=== PATIENT | male | born 1955 | race African-American/Black ===

== ENCOUNTER 2020-10-03 05:16 | Inpatient (IN) | payer MEDICARE, MEDICAID ==
[~2020-10-03] VITALS: Ht 185.4 cm; Wt 69.9 kg
[2020-10-03] MEDS ORDERED: SODIUM CHLORIDE 0.9% 1000ML BAG (SEPSIS BOLUS) IV ONE (06:30)
[2020-10-03] MEDS ORDERED: VANCOMYCIN 1 G PREMIX 200 ML IV ONE (06:30)
[2020-10-03] MEDS ORDERED: ACETAMINOPHEN 650MG SUPP PR ONE (06:30)
[2020-10-03] MEDS ORDERED: PIPERACILLIN/TAZ 3.375G PREMIX 50 ML IV ONE (06:30)
[2020-10-03 07:09] LABS: HEMATOCRIT. 31.2 % (42.0-52.0); HEMOGLOBIN. 10.4 g/dL (14.0-18.0); MEAN CORPUSCULAR HEMOGLOBIN 30.1 pg (28.0-32.0); MEAN CORPUSCULAR VOLUME 90.7 fL (80.0-94.0); MEAN PLATELET VOLUME 8.1 fl (7.4-10.4); PLATELET 211 x1000/uL (130-400); RED BLOOD CELL COUNT 3.44 mill/uL (4.7-6.1); RED CELL DISTRIBUTION WIDTH 16.2 % (11.6-14.6)
[2020-10-03 07:10] LABS: INR 1.2; PROTHROMBIN TIME 12.4 sec (9.6-11.0)
[2020-10-03 07:21] LABS: CHLORIDE 106 mEq/L (98-107)
[2020-10-03 08:05] LABS: PLATELET ESTIMATE NORMAL
[2020-10-03] MEDS ORDERED: ONDANSETRON HCL 4MG/2ML INJ IV PRN (13:00)
[2020-10-03] MEDS ORDERED: MAGNESIUM/ALUMINUM HYDROXIDE/SIMETHICONE 30ML UDC PO PRN (13:00)
[2020-10-03] MEDS ORDERED: LORAZEPAM 2MG/ML CPJ IV PRN (13:00)
[2020-10-03] MEDS ORDERED: GUAIFENESIN 200MG/10ML SUGAR FREE UDC PO PRN (13:00)
[2020-10-03] MEDS ORDERED: PIPERACILLIN/TAZ 3.375G PREMIX 50 ML IV SCH (13:00)
[2020-10-03] MEDS ORDERED: ACETAMINOPHEN 325MG TABLET PO PRN (13:00)
[2020-10-03] MEDS: DEXT 5%/0.45% NACL 1000ML 1,000 ML IV SCH (13:00)
[2020-10-03] MEDS: ENOXAPARIN 40MG/0.4ML SYR SUBCUT SCH (14:00)
[2020-10-03] MEDS: PIPERACILLIN/TAZOBACTAM 2.25 G in DEXTROSE 5% WATER 50 ML IV SCH ×2 (14:00→21:02)
[2020-10-04] MEDS: PIPERACILLIN/TAZOBACTAM 2.25 G in DEXTROSE 5% WATER 50 ML IV SCH ×3 (02:31→14:00)
[2020-10-04] MEDS: DEXT 5%/0.45% NACL 1000ML 1,000 ML IV SCH ×2 (02:31→17:17)
[2020-10-04 04:37] LABS: HEMATOCRIT. 27.9 % (42.0-52.0); HEMOGLOBIN. 9.6 g/dL (14.0-18.0); MEAN CORPUSCULAR HEMOGLOBIN 30.4 pg (28.0-32.0); MEAN CORPUSCULAR VOLUME 88.8 fL (80.0-94.0); RED BLOOD CELL COUNT 3.15 mill/uL (4.7-6.1); RED CELL DISTRIBUTION WIDTH 16.4 % (11.6-14.6)
[2020-10-04 04:44] LABS: CHLORIDE 109 mEq/L (98-107)
[2020-10-04 08:33] LABS: PLATELET ESTIMATE NORMAL
[2020-10-04 08:35] LABS: MEAN PLATELET VOLUME 8.2 fl (7.4-10.4); PLATELET 151 x1000/uL (130-400)
[2020-10-04] MEDS: ENOXAPARIN 40MG/0.4ML SYR SUBCUT SCH (17:15)
[2020-10-04 21:55] VITALS: BP 132/86
[2020-10-04 22:00] VITALS: BP 132/86
[2020-10-05] VITALS (12 sets, daily range): BP systolic 110–152; BP diastolic 62–86
[2020-10-05] MEDS: PIPERACILLIN/TAZOBACTAM 2.25 G in DEXTROSE 5% WATER 50 ML IV SCH ×3 (00:26→11:51)
[2020-10-05] MEDS: DEXT 5%/0.45% NACL 1000ML 1,000 ML IV SCH ×2 (04:44→18:33)
[2020-10-05] MEDS: ENOXAPARIN 40MG/0.4ML SYR SUBCUT SCH (10:15)
[2020-10-05] MEDS: CEFTRIAXONE 2 G in DEXTROSE 5% WATER 50 ML IV SCH (18:16)
[2020-10-06] VITALS (12 sets, daily range): BP systolic 110–141; BP diastolic 60–86
[2020-10-06 06:30] LABS: BASOPHILS % 0.4 % (0.0-2.0); HEMOGLOBIN. 9.2 g/dL (14.0-18.0); LYMPHOCYTES % 9.1 % (20.0-50.0); MEAN CORPUSCULAR HEMOGLOBIN 30.1 pg (28.0-32.0); MEAN CORPUSCULAR VOLUME 88.5 fL (80.0-94.0); MEAN PLATELET VOLUME 8.4 fl (7.4-10.4); MONOCYTES % 6.7 % (2.0-8.0); NEUTROPHILS % 82.8 % (40.0-76.0); PLATELET 183 x1000/uL (130-400); RED BLOOD CELL COUNT 3.05 mill/uL (4.7-6.1); RED CELL DISTRIBUTION WIDTH 16.7 % (11.6-14.6)
[2020-10-06 06:34] LABS: CHLORIDE 108 mEq/L (98-107)
[2020-10-06] MEDS: DEXT 5%/0.45% NACL 1000ML 1,000 ML IV SCH (07:40)
[2020-10-06] MEDS: ENOXAPARIN 40MG/0.4ML SYR SUBCUT SCH (08:53)
[2020-10-06] MEDS: CEFTRIAXONE 2 G in DEXTROSE 5% WATER 50 ML IV SCH (16:09)
[2020-10-06 16:51] LABS: CREATINE KINASE 187 IU/L (39-308)
[2020-10-06 17:26] LABS: CLARITY URINE CLEAR (CLEAR); COLOR URINE ORANGE (YELLOW); KETONES URINE NEGATIVE (NEGATIVE); LEUKOCYTE ESTERASE URINE 3+ (NEGATIVE); NITRITE URINE NEGATIVE (NEGATIVE); OCCULT BLOOD URINE 3+ (NEGATIVE); PROTEIN URINE 1+ (NEGATIVE); SPECIFIC GRAVITY URINE 1.008 (1.005-1.030); UROBILINOGEN URINE 0.2 E.U./dL (0.2-1.0)
[2020-10-06] MEDS: SODIUM CHLORIDE 0.45% 1,000 ML IV SCH (20:04)
[2020-10-07] VITALS (13 sets, daily range): BP systolic 107–140; BP diastolic 58–83
[2020-10-07] MEDS: SODIUM CHLORIDE 0.45% 1,000 ML IV SCH ×2 (09:17→22:09)
[2020-10-07] MEDS: ENOXAPARIN 40MG/0.4ML SYR SUBCUT SCH (09:18)
[2020-10-07] MEDS: CEFTRIAXONE 2 G in DEXTROSE 5% WATER 50 ML IV SCH (16:13)
[2020-10-07 16:47] LABS: HEMATOCRIT. 24.2 % (42.0-52.0); HEMOGLOBIN. 8.4 g/dL (14.0-18.0); MEAN CORPUSCULAR HEMOGLOBIN 30.8 pg (28.0-32.0); MEAN CORPUSCULAR VOLUME 88.4 fL (80.0-94.0); MEAN PLATELET VOLUME 7.9 fl (7.4-10.4); PLATELET 165 x1000/uL (130-400); RED BLOOD CELL COUNT 2.73 mill/uL (4.7-6.1); RED CELL DISTRIBUTION WIDTH 16.1 % (11.6-14.6)
[2020-10-07 17:21] LABS: CHLORIDE 112 mEq/L (98-107)
[2020-10-07 19:32] LABS: PLATELET ESTIMATE NORMAL
[2020-10-08] VITALS (8 sets, daily range): BP systolic 114–156; BP diastolic 67–81
[2020-10-08 07:31] LABS: BASOPHILS % 1.1 % (0.0-2.0); EOSINOPHILS % 4.6 % (0.0-5.0); HEMATOCRIT. 23.3 % (42.0-52.0); HEMOGLOBIN. 7.8 g/dL (14.0-18.0); LYMPHOCYTES % 21.1 % (20.0-50.0); MEAN CORPUSCULAR VOLUME 89.7 fL (80.0-94.0); MEAN PLATELET VOLUME 8.3 fl (7.4-10.4); MONOCYTES % 14.3 % (2.0-8.0); NEUTROPHILS % 58.9 % (40.0-76.0); PLATELET 193 x1000/uL (130-400); RED CELL DISTRIBUTION WIDTH 16.6 % (11.6-14.6)
[2020-10-08 07:39] LABS: CHLORIDE 110 mEq/L (98-107)
[2020-10-08] MEDS: ENOXAPARIN 40MG/0.4ML SYR SUBCUT SCH (09:42)
[2020-10-08] MEDS ORDERED: POTASSIUM CHLORIDE 20MEQ/PACKET PO NR (12:00)
[2020-10-08] MEDS: SODIUM CHLORIDE 0.45% 1,000 ML IV SCH (12:29)
[2020-10-08 19:10] LABS: ANTI-NUCLEAR ANTIBODIES DIRECT Negative (Negative)
== END 2020-10-08 15:10 | DRG 871 ==
LOC: ER 05:16 → MICUSO 08:22 → EDBEDREQ 09:11 → EDBEDREQSVC 09:11 → 3WST 10-04 21:57
PROVIDERS: ADMIT Hospitalist; ATTEND Hospitalist
PROC: 02HV33Z Insertion of Infusion Device into Superior Vena Cava, Percutaneous Approach (ICD-10-PCS; principal; 2020-10-07)
PROC: B5181ZA Fluoroscopy of Superior Vena Cava using Low Osmolar Contrast, Guidance (ICD-10-PCS; 2020-10-07)
PROC: B548ZZA Ultrasonography of Superior Vena Cava, Guidance (ICD-10-PCS; 2020-10-07)
DX: A41.9 Sepsis, unspecified organism (principal); E43 Unspecified severe protein-calorie malnutrition; J18.9 Pneumonia, unspecified organism; N17.0 Acute kidney failure with tubular necrosis; I69.354 Hemiplegia and hemiparesis following cerebral infarction affecting left non-dominant side; E87.2 Acidosis; D63.8 Anemia in other chronic diseases classified elsewhere; Z20.828 Contact with and (suspected) exposure to other viral communicable diseases; B96.89 Other specified bacterial agents as the cause of diseases classified elsewhere; E86.9 Volume depletion, unspecified; I12.9 Hypertensive chronic kidney disease with stage 1 through stage 4 chronic kidney disease, or unspecified chronic kidney disease; N18.9 Chronic kidney disease, unspecified; R13.10 Dysphagia, unspecified; E11.22 Type 2 diabetes mellitus with diabetic chronic kidney disease; Z87.440 Personal history of urinary (tract) infections; Z79.899 Other long term (current) drug therapy; N30.90 Cystitis, unspecified without hematuria; I95.9 Hypotension, unspecified
CPT/HCPCS: 36415; 36573; 71045; 76770; 76857; 80048; 80053; 81003; 82550; 83605; 83735; 84145; 84484; 85025; 86038; 86160; 87077; 87186; 87635; 92610; 93005; 93970; 96365; 99291; A6261; C1725; J0696; J1650; J2543; J3370; J7030; J7060

== ENCOUNTER 2020-11-18 08:34 | Inpatient (IN) | payer MEDICARE, MEDICAID ==
[~2020-11-18] VITALS: Ht 167.6 cm; Wt 71.7 kg
[2020-11-18] MEDS ORDERED: ACETAMINOPHEN 650MG SUPP PR STA (08:43)
[2020-11-18] MEDS ORDERED: SODIUM CHLORIDE 0.9% 1000ML BAG (SEPSIS BOLUS) IV ONE (08:45)
[2020-11-18] MEDS ORDERED: PIPERACILLIN/TAZ 3.375G PREMIX 50 ML IV ONE (08:45)
[2020-11-18] MEDS ORDERED: VANCOMYCIN 1 G PREMIX 200 ML IV ONE (08:45)
[2020-11-18 09:26] LABS: BASOPHILS % 0.9 % (0.0-2.0); EOSINOPHILS % 2.7 % (0.0-5.0); HEMATOCRIT. 32.7 % (42.0-52.0); HEMOGLOBIN. 10.8 g/dL (14.0-18.0); LYMPHOCYTES % 13.4 % (20.0-50.0); MEAN CORPUSCULAR HEMOGLOBIN 30.8 pg (28.0-32.0); MEAN CORPUSCULAR VOLUME 93.3 fL (80.0-94.0); MEAN PLATELET VOLUME 7.9 fl (7.4-10.4); MONOCYTES % 1.8 % (2.0-8.0); NEUTROPHILS % 81.2 % (40.0-76.0); PLATELET 203 x1000/uL (130-400); RED BLOOD CELL COUNT 3.51 mill/uL (4.7-6.1); RED CELL DISTRIBUTION WIDTH 18.4 % (11.6-14.6)
[2020-11-18 09:37] LABS: CHLORIDE 104 mEq/L (98-107)
[2020-11-18 09:43] LABS: INR 1.1
[2020-11-18 10:45] LABS: KETONES URINE NEGATIVE (NEGATIVE); LEUKOCYTE ESTERASE URINE 3+ (NEGATIVE); NITRITE URINE NEGATIVE (NEGATIVE); OCCULT BLOOD URINE 3+ (NEGATIVE); PROTEIN URINE 3+ (NEGATIVE); SPECIFIC GRAVITY URINE 1.011 (1.005-1.030); UROBILINOGEN URINE 0.2 E.U./dL (0.2-1.0)
[2020-11-18 10:48] LABS: CLARITY URINE TURBID (CLEAR); COLOR URINE BLOODY (YELLOW)
[2020-11-18] MEDS ORDERED: ONDANSETRON HCL 4MG/2ML INJ IV PRN (13:45)
[2020-11-18] MEDS ORDERED: ACETAMINOPHEN 325MG TABLET PO PRN (13:45)
[2020-11-18] MEDS ORDERED: PIPERACILLIN/TAZOBACTAM 3.375 G in DEXT 5% WATER 100 ML IV SCH (13:45)
[2020-11-18] MEDS: SODIUM CHLORIDE 0.45% 1,000 ML IV SCH (14:59)
[2020-11-18] MEDS: MIDODRINE HCL 5MG TABLET PO SCH ×2 (15:36→17:00)
[2020-11-18] MEDS: PIPERACILLIN/TAZOBACTAM 2.25 G in DEXTROSE 5% WATER 50 ML IV SCH ×2 (15:47→21:52)
[2020-11-18] MEDS: CEFEPIME 1,000 MG in DEXTROSE 5% WATER 50 ML IV SCH (23:29)
[2020-11-18] MEDS ORDERED: VANCOMYCIN 500 MG PREMIX 100 ML IV SCH (23:30)
[2020-11-19] VITALS (7 sets, daily range): BP systolic 119–166; BP diastolic 65–80
[2020-11-19] MEDS ORDERED: METO-539 GT (01:09)
[2020-11-19] MEDS ORDERED: FOLI1TAB63 GT (01:09)
[2020-11-19] MEDS ORDERED: ASPI-1497 GT (01:09)
[2020-11-19] MEDS ORDERED: HYDR-4135 GT (01:09)
[2020-11-19] MEDS ORDERED: FINA1TAB18 GT (01:09)
[2020-11-19] MEDS ORDERED: BISA10SU62 RC (01:09)
[2020-11-19] MEDS ORDERED: SENN-22 GT (01:09)
[2020-11-19] MEDS ORDERED: DOCU-150 GT (01:09)
[2020-11-19] MEDS ORDERED: AMLO10TA4 GT (01:09)
[2020-11-19] MEDS ORDERED: TOPUD GT (01:09)
[2020-11-19] MEDS ORDERED: CALC667C GT (01:09)
[2020-11-19] MEDS ORDERED: MELA2.5T GT (01:09)
[2020-11-19] MEDS: SODIUM CHLORIDE 0.45% 1,000 ML IV SCH ×2 (03:12→17:34)
[2020-11-19] MEDS ORDERED: CLONIDINE 0.1MG TABLET PO PRN (09:00)
[2020-11-19 10:19] LABS: HEMATOCRIT. 27.6 % (42.0-52.0); HEMOGLOBIN. 9.4 g/dL (14.0-18.0); MEAN CORPUSCULAR HEMOGLOBIN 31.3 pg (28.0-32.0); MEAN CORPUSCULAR VOLUME 92.1 fL (80.0-94.0); MEAN PLATELET VOLUME 7.9 fl (7.4-10.4); PLATELET 151 x1000/uL (130-400); RED CELL DISTRIBUTION WIDTH 18.2 % (11.6-14.6)
[2020-11-19] MEDS ORDERED: VANCOMYCIN 1 G PREMIX 200 ML IV SCH (14:00)
[2020-11-20] VITALS (7 sets, daily range): BP systolic 124–151; BP diastolic 61–100
[2020-11-20 00:02] LABS: PLATELET ESTIMATE NORMAL
[2020-11-20] MEDS: CEFEPIME 1,000 MG in DEXTROSE 5% WATER 50 ML IV SCH ×2 (00:12→23:41)
[2020-11-20] MEDS: SODIUM CHLORIDE 0.45% 1,000 ML IV SCH ×2 (06:00→23:42)
[2020-11-20 06:14] LABS: HEMATOCRIT. 26.4 % (42.0-52.0); HEMOGLOBIN. 9.1 g/dL (14.0-18.0); MEAN CORPUSCULAR HEMOGLOBIN 31.1 pg (28.0-32.0); MEAN CORPUSCULAR VOLUME 90.6 fL (80.0-94.0); MEAN PLATELET VOLUME 8.3 fl (7.4-10.4); PLATELET 169 x1000/uL (130-400); RED BLOOD CELL COUNT 2.92 mill/uL (4.7-6.1)
[2020-11-20] MEDS: ASPIRIN 81MG TABLET PO SCH (13:15)
[2020-11-20 22:37] LABS: PLATELET ESTIMATE NORMAL
[2020-11-21] VITALS (7 sets, daily range): BP systolic 140–180; BP diastolic 62–84
[2020-11-21] MEDS: SODIUM CHLORIDE 0.45% 1,000 ML IV SCH ×2 (08:40→21:27)
[2020-11-21] MEDS: ASPIRIN 81MG TABLET PO SCH (09:00)
[2020-11-21] MEDS: CEFEPIME 1,000 MG in DEXTROSE 5% WATER 50 ML IV SCH (21:27)
[2020-11-22] VITALS: BP 140/72
[2020-11-22 04:00] VITALS: BP 147/72
[2020-11-22 08:00] VITALS: BP 156/72
[2020-11-22] MEDS ORDERED: CEFEPIME 1,000 MG in DEXTROSE 5% WATER 50 ML IV SCH (10:00)
[2020-11-22] MEDS: ASPIRIN 81MG TABLET PO SCH (10:07)
[2020-11-22] MEDS: SODIUM CHLORIDE 0.45% 1,000 ML IV SCH (11:20)
[2020-11-22 12:00] VITALS: BP 149/75
[2020-11-22 16:00] VITALS: BP 159/78
[2020-11-22 17:03] VITALS: BP 149/76
== END 2020-11-22 19:00 | DRG 871 ==
LOC: ER 08:34 → EDBEDREQSVC 11:33 → EDBEDREQ 11:33 → MICUSO 13:26 → 5WST 23:16
PROVIDERS: ADMIT Internal Medicine; ATTEND Internal Medicine
PROC: 02HV33Z Insertion of Infusion Device into Superior Vena Cava, Percutaneous Approach (ICD-10-PCS; principal; 2020-11-22)
PROC: B5181ZA Fluoroscopy of Superior Vena Cava using Low Osmolar Contrast, Guidance (ICD-10-PCS; 2020-11-22)
PROC: B548ZZA Ultrasonography of Superior Vena Cava, Guidance (ICD-10-PCS; 2020-11-22)
DX: A41.9 Sepsis, unspecified organism (principal); R65.21 Severe sepsis with septic shock; N17.0 Acute kidney failure with tubular necrosis; E44.1 Mild protein-calorie malnutrition; E87.2 Acidosis; N39.0 Urinary tract infection, site not specified; D64.9 Anemia, unspecified; D72.819 Decreased white blood cell count, unspecified; I10 Essential (primary) hypertension; Z20.822 Contact with and (suspected) exposure to COVID-19; Z86.73 Personal history of transient ischemic attack (TIA), and cerebral infarction without residual deficits; Z68.31 Body mass index [BMI] 31.0-31.9, adult; Z79.899 Other long term (current) drug therapy
CPT/HCPCS: 36415; 36573; 70551; 71045; 80048; 80053; 81003; 83605; 84145; 84484; 85025; 87077; 87186; 93005; 99291; C1725; C9803; J0692; J2543; J3370; J7030; J7060; U0003

== ENCOUNTER 2022-07-20 21:23 | Emergency (ER) | payer MEDICARE, MEDICAID ==
[~2022-07-20] VITALS: Ht 172.7 cm; Wt 77.5 kg
[~2022-07-20 21:23] MED LIST: AMLO10TA4 GT; ASPI-1497 GT; BISA10SU62 RC; CALC667C GT; DOCU-150 GT; FINA1TAB18 GT; FOLI1TAB63 GT; HYDR-4135 GT; MELA2.5T GT; METO-539 GT; SENN-22 GT; TOPUD GT
[2022-07-20 22:33] LABS: BASOPHILS % 0.7 % (0.0-2.0); EOSINOPHILS % 3.1 % (0.0-5.0); HEMATOCRIT. 38.5 % (42.0-52.0); HEMOGLOBIN. 13.3 g/dL (14.0-18.0); MEAN CORPUSCULAR HEMOGLOBIN 31.4 pg (28.0-32.0); MEAN PLATELET VOLUME 8.2 fl (7.4-10.4); MONOCYTES % 7.8 % (2.0-8.0); NEUTROPHILS % 74.4 % (40.0-76.0); PLATELET 278 x1000/uL (130-400); RED BLOOD CELL COUNT 4.23 mill/uL (4.7-6.1); RED CELL DISTRIBUTION WIDTH 14.2 % (11.6-14.6)
[2022-07-20 22:36] LABS: CHLORIDE 105 mEq/L (98-107)
[2022-07-20 22:38] LABS: PROTHROMBIN TIME 10.8 sec (9.6-11.0)
[2022-07-20] MEDS ORDERED: SODIUM CHLORIDE 0.9% 500 ML IV ONE (23:00)
[2022-07-21 01:43] LABS: CLARITY URINE CLOUDY (CLEAR); COLOR URINE YELLOW (YELLOW); KETONES URINE NEGATIVE (NEGATIVE); LEUKOCYTE ESTERASE URINE 3+ (NEGATIVE); NITRITE URINE POSITIVE (NEGATIVE); OCCULT BLOOD URINE 2+ (NEGATIVE); PROTEIN URINE NEGATIVE (NEGATIVE); SPECIFIC GRAVITY URINE 1.013 (1.005-1.030); UROBILINOGEN URINE 0.2 E.U./dL (0.2-1.0)
[2022-07-21] MEDS ORDERED: CEFTRIAXONE 1 G PREMIX 50 ML IV ONE (02:30)
[2022-07-21] MEDS ORDERED: CEFP200T13 MT (02:36)
[2022-07-21 13:40] VITALS: BP 146/86
== END 2022-07-21 14:02 ==
LOC: ER 21:23 → CANBEDREQ 07-21 09:14 → ER 07-21 14:02
DX: N39.0 Urinary tract infection, site not specified (principal); R05.9 Cough, unspecified; Z20.822 Contact with and (suspected) exposure to COVID-19; R09.81 Nasal congestion; R00.0 Tachycardia, unspecified; I10 Essential (primary) hypertension; I69.30 Unspecified sequelae of cerebral infarction
CPT/HCPCS: 96361; 96365; 99285; J0696; J7040; 36415; 71045; 80053; 81003; 83605; 83880; 84145; 84484; 85025; 87426; 93005; C9803

== ENCOUNTER 2024-05-07 18:22 | Emergency (ER) | payer MEDICARE, MEDICAID ==
[~2024-05-07] VITALS: Ht 180.3 cm; Wt 91.0 kg
[~2024-05-07 18:22] MED LIST changes: +CEFP200T13 MT; -HYDR-4135 GT; +HYDR50TA40 GT; -MELA2.5T GT; +MELA2.5T16 GT
[2024-05-07 18:29] VITALS: O2SAT 100
[2024-05-07 19:02] LABS: BASOPHILS % 1.1 % (0.0-2.0); EOSINOPHILS % 4.3 % (0.0-5.0); HEMATOCRIT. 39.3 % (42.0-52.0); HEMOGLOBIN. 13.5 g/dL (14.0-18.0); LYMPHOCYTES % 15.3 % (20.0-50.0); MEAN CORPUSCULAR HEMOGLOBIN 31.6 pg (28.0-32.0); MEAN CORPUSCULAR HGB CONC 34.5 g/dL (31.0-37.0); MEAN CORPUSCULAR VOLUME 91.7 fL (80.0-94.0); MONOCYTES % 10.1 % (2.0-8.0); NEUTROPHILS % 69.2 % (40.0-76.0); PLATELET 227 x1000/uL (130-400); RED BLOOD CELL COUNT 4.29 mill/uL (4.7-6.1); RED CELL DISTRIBUTION WIDTH 14.3 % (11.6-14.6); WHITE BLOOD COUNT 6.8 x1000/uL (4.5-11.0)
[2024-05-07 19:07] LABS: CHLORIDE 106 mEq/L (98-107); SODIUM 140 mEq/L (136-145)
[2024-05-07 19:08] LABS: CARBON DIOXIDE 28 mEq/L (21-32)
[2024-05-07 19:09] LABS: CALCIUM 9.5 mg/dL (8.7-10.4)
[2024-05-07 19:13] LABS: CREATININE 0.9 mg/dL (0.6-1.3); GLUCOSE 112 mg/dL (70-105)
[2024-05-07 19:14] LABS: UREA NITROGEN BLOOD 13 mg/dL (9-23)
[2024-05-07 19:15] LABS: TROPONIN I HIGH SENSITIVITY 10 ng/L (3.0-53)
[2024-05-08 11:46] VITALS: BP 128/81; PULSE 54; RESP 19; TEMP 98.3
== END 2024-05-08 14:35 | disposition home or self-care (01) ==
LOC: ER 18:22 → CANBEDREQ 05-08 10:57 → ER 05-08 14:35
DX: S00.212A Abrasion of left eyelid and periocular area, initial encounter (principal); S09.90XA Unspecified injury of head, initial encounter; I10 Essential (primary) hypertension; Z86.73 Personal history of transient ischemic attack (TIA), and cerebral infarction without residual deficits; Z87.440 Personal history of urinary (tract) infections; Z79.899 Other long term (current) drug therapy; W06.XXXA Fall from bed, initial encounter; Y93.89 Activity, other specified; Y92.89 Other specified places as the place of occurrence of the external cause; Y99.8 Other external cause status
CPT/HCPCS: 36415; 71045; 80048; 83605; 83880; 84484; 85025; 93005; 99285